=== PATIENT | female | born 1980 | race Caucasian/White ===

== ENCOUNTER 2018-09-04 08:13 | Outpatient (CLI) | payer OTHER | END 2018-09-04 17:00 | disposition home or self-care (01) | LOC: TOM 08:13 | DX: G44.009 Cluster headache syndrome, unspecified, not intractable (principal) ==

== ENCOUNTER 2018-09-14 08:02 | Outpatient (CLI) | payer OTHER | END 2018-09-14 08:09 | disposition home or self-care (01) | LOC: MAMO-SONO 08:02 | DX: Z12.31 Encounter for screening mammogram for malignant neoplasm of breast (principal); Z87.898 Personal history of other specified conditions; R06.09 Other forms of dyspnea; N60.19 Diffuse cystic mastopathy of unspecified breast ==

== ENCOUNTER → 2018-12-18 | Emergency (ER) | payer OTHER ==
[~2018-12-18] VITALS: Ht 175.3 cm; Wt 79.4 kg
[~2018-12-18] MED LIST: CEFUROXIME500 MG PO; MUPIROCIN15 GM TOP
== END | disposition home or self-care (01) ==
LOC: ER 22:34
DX: S01.02XA Laceration with foreign body of scalp, initial encounter (principal); W45.8XXA Other foreign body or object entering through skin, initial encounter; Y93.89 Activity, other specified; Y92.520 Airport as the place of occurrence of the external cause; Y99.8 Other external cause status

== ENCOUNTER 2021-03-06 08:42 | Outpatient (CLI) | payer OTHER | END 2021-03-06 08:54 | disposition home or self-care (01) | LOC: MAMO-SONO 08:42 | PROVIDERS: ATTEND Family Medicine | DX: N92.5 Other specified irregular menstruation (principal); N60.11 Diffuse cystic mastopathy of right breast; N60.12 Diffuse cystic mastopathy of left breast ==

== ENCOUNTER 2022-10-30 09:36 | Outpatient (CLI) | payer OTHER | END 2022-10-30 09:45 | disposition home or self-care (01) | LOC: SONOGRAMA 09:36 | PROVIDERS: ATTEND Family Medicine | DX: N92.6 Irregular menstruation, unspecified (principal) ==

== ENCOUNTER 2022-11-21 09:01 | Outpatient (CLI) | payer OTHER | END 2022-11-21 09:13 | disposition home or self-care (01) | LOC: NUCLEAR 09:01 | DX: M79.671 Pain in right foot (principal); I82.402 Acute embolism and thrombosis of unspecified deep veins of left lower extremity; I82.421 Acute embolism and thrombosis of right iliac vein ==

== ENCOUNTER 2024-01-29 08:17 | Outpatient (CLI) | payer OTHER | END 2024-01-29 08:26 | disposition home or self-care (01) | LOC: SONOGRAMA 08:17 | PROVIDERS: ATTEND Chiropractor | DX: M72.2 Plantar fascial fibromatosis (principal); M25.372 Other instability, left ankle ==

== ENCOUNTER 2024-03-02 13:09 | Outpatient (CLI) | payer OTHER | END 2024-03-02 13:23 | disposition home or self-care (01) | LOC: MAMO-SONO 13:09 | PROVIDERS: ATTEND Family Medicine | DX: N60.11 Diffuse cystic mastopathy of right breast (principal); N60.12 Diffuse cystic mastopathy of left breast; N84.0 Polyp of corpus uteri ==